=== PATIENT | male | born 1950 | race Caucasian/White ===

== ENCOUNTER 2017-08-07 15:42 | Emergency (ER) | payer MEDICARE ==
[2017-08-07] MEDS ORDERED: Lidocaine 1% 20 ML MDV ONE (16:30)
--- NOTE | 2017-08-07 16:38 | RAD ---
TWO VIEWS LEFT FOREARM: Comparison: None. History: Left mid forearm pain after being scratched with a metal shaving. FINDINGS: Two views of the left forearm shows no evidence of acute fracture or dislocation. There is soft tissu e swelling of the mid portion of the forearm. There is a 3 mm radiopaque object along the radial aspe ct of the forearm which may represent a retained radiopaque foreign body. IMPRESSION: Foreign body mid forearm with surrounding soft tissue swelling. POS: [facility]
== END 2017-08-07 16:50 | disposition home or self-care (01) ==
LOC: NAV ERS 15:42
DX: S51.842A Puncture wound with foreign body of left forearm, initial encounter (principal); J45.909 Unspecified asthma, uncomplicated; Z87.891 Personal history of nicotine dependence; Z79.899 Other long term (current) drug therapy; W45.8XXA Other foreign body or object entering through skin, initial encounter
CPT/HCPCS: 24200; J2001